=== PATIENT | female | born 1940 | race Caucasian/White ===

== ENCOUNTER → 2017-03-11 | Outpatient (CLI) | payer MEDICARE, OTHER ==
[~2017-03-11] VITALS: Ht 154.9 cm; Wt 52.2 kg
[~2017-03-11] MED LIST: ADENOSINE 44 MG in GIVE UN-DILUTED 0 ML IV ONE; ADENOSINE 90 MG/30 ML INJ IV ONE; ASPI-231 PO; ATEN50TA PO; CALC-242 OR; DYA375C PO; EZET10TA38 PO; METF-370 PO; OLME40TA27 PO
[2017-03-11 12:28] LABS: Urine Bilirubin Negative (Negative); Urine Blood Negative /uL (Negative); Urine Color Yellow (Yellow); Urine Glucose Normal (Normal); Urine Ketone Negative (Negative); Urine Nitrite POSITIVE (Negative); Urine Urobilinogen Normal (Negative); Urine pH 6.5 (5.0-8.0)
[2017-03-11 12:31] LABS: Basophils # (auto) 0.1 uL; Basophils % (auto) 0.6 % (0.0-2.0); CONDITION Y; Eosinophils # (auto) 0.2 uL; Hematocrit 32.8 % (36.0-46.0); Lymphocytes # (auto) 2.3 uL; Mean Corpuscular Hemoglobin 31.2 pg (28.0-32.0); Mean Corpuscular Hgb Conc. 33.5 g/dL (32.0-36.0); Mean Platelet Volume 9.6 fL (7.4-10.4); Monocytes # (auto) 0.5 uL; Monocytes % (auto) 5.4 % (0.0-12.0); Neutrophils # (auto) 6.8 uL; Platelet Count (auto) 215 10^3/uL (140-450); Red Cell Distribution Width 14.6 % (11.6-16.0); White Blood Cell 9.9 10^3/uL (4.4-10.8)
[2017-03-11 12:57] LABS: Albumin 3.5 g/dL (3.4-5.0); Alkaline Phosphatase 96 U/L (45-117); Anion Gap 9 (5-15); Aspartate Aminotransferase 23 U/L (15-37); BUN/Creatinine Ratio 15.9; Bilirubin, Direct < 0.1 mg/dL (0-0.2); Bilirubin, Total 0.2 mg/dL (0.2-1.0); Blood Urea Nitrogen 29 mg/dL (7-18); Calcium 8.8 mg/dL (8.5-10.1); Carbon Dioxide 22 mmol/L (21-32); Chloride 106 mmol/L (98-107); Cholesterol 125 mg/dL (< 200); GFR African American 35 mL/min; GFR Non-African American 29 mL/min; Glucose 86 mg/dL (74-106); HDL Cholesterol 29 mg/dL (40-59); LDL Cholesterol 64 mg/dL (< 100); Potassium 4.8 mmol/L (3.5-5.1); Sodium 137 mmol/L (136-145); Total Protein 6.9 g/dL (6.4-8.2); Triglycerides 243 mg/dL (< 150)
== END | disposition home or self-care (01) ==
LOC: Rad HDHVI 08:41
PROVIDERS: ATTEND Internal Medicine Cardiovascular Disease
DX: I10 Essential (primary) hypertension (principal); J44.9 Chronic obstructive pulmonary disease, unspecified; I47.9 Paroxysmal tachycardia, unspecified; D51.9 Vitamin B12 deficiency anemia, unspecified; E03.9 Hypothyroidism, unspecified; E78.00 Pure hypercholesterolemia, unspecified; N39.0 Urinary tract infection, site not specified; K74.1 Hepatic sclerosis; E11.9 Type 2 diabetes mellitus without complications; D64.9 Anemia, unspecified; E55.9 Vitamin D deficiency, unspecified; R53.81 Other malaise; Z95.5 Presence of coronary angioplasty implant and graft
CPT/HCPCS: 36415; 78452; 80048; 80061; 80076; 81003; 82306; 82607; 83036; 84402; 84403; 84443; 85025; 93005; 93306; 96374; 96375; A9500; J0153

== ENCOUNTER → 2017-09-22 | Outpatient (CLI) | payer MEDICARE, OTHER ==
[~2017-09-22] MED LIST changes: -ADENOSINE 44 MG in GIVE UN-DILUTED 0 ML IV ONE; -ADENOSINE 90 MG/30 ML INJ IV ONE; +CHOL20002 PO; +DOXA1TAB42 PO; +LOSA100T27 PO; +TICA1TAB PO
== END | disposition home or self-care (01) ==
LOC: Rad HDHVI 14:16
PROVIDERS: ATTEND Internal Medicine Cardiovascular Disease
DX: K80.20 Calculus of gallbladder without cholecystitis without obstruction (principal); I70.0 Atherosclerosis of aorta; J84.10 Pulmonary fibrosis, unspecified
CPT/HCPCS: 71250

== ENCOUNTER → 2017-09-23 | Outpatient (CLI) | payer MEDICARE, OTHER ==
[~2017-09-23] MED LIST changes: +MVI in SODIUM CHLORIDE 0.9% 1,010 ML ONE; +ONDANSETRON HCL 4 MG/2 ML VIAL ONE
[2017-09-23 16:30] VITALS: BP 155/56
== END | disposition home or self-care (01) ==
LOC: CHF HDHVI 14:33
PROVIDERS: ATTEND Internal Medicine Cardiovascular Disease
DX: E86.0 Dehydration (principal); R06.02 Shortness of breath; R09.02 Hypoxemia
CPT/HCPCS: 82962; 96365; 96366; 96375; G0463; J2405; J3411; J3475

== ENCOUNTER → 2017-09-30 | Outpatient (CLI) | payer MEDICARE, OTHER ==
[~2017-09-30] MED LIST changes: +IOHEXOL 350 MG/ML 100ML IJ ONE; -MVI in SODIUM CHLORIDE 0.9% 1,010 ML ONE; -ONDANSETRON HCL 4 MG/2 ML VIAL ONE; +SODIUM CHLORIDE 0.9% 1,000 ML IV ONE
[2017-09-30 10:45] VITALS: BP 160/62
[2017-09-30 12:20] VITALS: BP 178/59
== END | disposition home or self-care (01) ==
LOC: Rad HDHVI 10:33
PROVIDERS: ATTEND Internal Medicine Cardiovascular Disease
DX: K44.9 Diaphragmatic hernia without obstruction or gangrene (principal); I70.1 Atherosclerosis of renal artery; I70.0 Atherosclerosis of aorta; K80.20 Calculus of gallbladder without cholecystitis without obstruction; I25.10 Atherosclerotic heart disease of native coronary artery without angina pectoris; M47.899 Other spondylosis, site unspecified; J43.2 Centrilobular emphysema
CPT/HCPCS: 71260; 74177; 82565; 96360; 96374; G0463; Q9967; 96361

== ENCOUNTER → 2017-10-27 | Outpatient (CLI) | payer MEDICARE, OTHER ==
[~2017-10-27] MED LIST changes: -IOHEXOL 350 MG/ML 100ML IJ ONE; -SODIUM CHLORIDE 0.9% 1,000 ML IV ONE
[2017-10-27 10:00] VITALS: BP 143/53
[2017-10-27 10:25] VITALS: BP 150/54
[2017-10-27 12:11] LABS: Basophils # (auto) 0.1 uL; Basophils % (auto) 0.6 % (0.0-2.0); Eosinophils # (auto) 0.1 uL; Eosinophils % (auto) 1.2 % (0.0-7.0); Hematocrit 33.7 % (36.0-46.0); Hemoglobin 10.9 g/dL (12.2-16.2); Lymphocytes # (auto) 1.7 uL; Lymphocytes % (auto) 19.3 % (10.0-50.0); Mean Corpuscular Hemoglobin 30.6 pg (28.0-32.0); Mean Corpuscular Hgb Conc. 32.3 g/dL (32.0-36.0); Mean Corpuscular Volume 94.7 fL (80.0-100.0); Monocytes # (auto) 0.5 uL; Monocytes % (auto) 5.8 % (0.0-12.0); Neutrophils # (auto) 6.4 uL; Neutrophils % (auto) 73.1 % (37.0-80.0); Platelet Count (auto) 229 10^3/uL (140-450); Red Blood Cells 3.55 10^6/uL (4.0-5.20); Red Cell Distribution Width 15.6 % (11.8-14.3); White Blood Cell 8.8 10^3/uL (4.4-10.8)
[2017-10-27 12:23] LABS: INR 0.92 (0.9-1.15); Partial Thromboplastin Time 27.4 sec (22.64-33.71)
[2017-10-27 12:28] LABS: BUN/Creatinine Ratio 14.5; Calcium 8.7 mg/dL (8.5-10.1); Potassium 4.8 mmol/L (3.5-5.1)
== END | disposition home or self-care (01) ==
LOC: Rad HDHVI 09:34
PROVIDERS: ATTEND Internal Medicine Cardiovascular Disease
DX: Z01.818 Encounter for other preprocedural examination (principal); I70.0 Atherosclerosis of aorta; D64.9 Anemia, unspecified; R79.1 Abnormal coagulation profile; I10 Essential (primary) hypertension; E78.00 Pure hypercholesterolemia, unspecified; Z95.5 Presence of coronary angioplasty implant and graft
CPT/HCPCS: 36415; 71046; 80048; 85025; 85610; 85730; 93005; G0463

== ENCOUNTER 2017-10-29 09:53 | Inpatient (IN) | payer MEDICARE, OTHER ==
[~2017-10-29] VITALS: Ht 152.4 cm; Wt 53.3 kg
[~2017-10-29 09:53] MED LIST changes: -TICA1TAB PO
[2017-10-29] MEDS ORDERED: fentaNYL CITRATE 100 MCG/2 ML VL ONE (12:39)
[2017-10-29] MEDS ORDERED: MIDAZOLAM HCL 1MG/1ML-2 ML VIAL ONE (12:39)
[2017-10-29] MEDS ORDERED: ANGIOMAX 250 MG VIAL IV ONE (12:41)
[2017-10-29] MEDS ORDERED: SODIUM CHL 0.9% 50 ML ONE (12:42)
[2017-10-29] MEDS ORDERED: IODIXANOL 320MG/ML 100ML BTL IV ONE ×2 (12:46→12:48)
[2017-10-29] MEDS ORDERED: LIDOCAINE 2%HCL (LOCAL ANESTH.) INJ 20ML MDV ONE (12:48)
[2017-10-29] MEDS ORDERED: cloNIDine HCL 0.1 MG TAB ONE (13:08)
[2017-10-29] MEDS ORDERED: CLOPIDOGREL 300 MG TAB ONE (13:41)
[2017-10-29] MEDS ORDERED: SODIUM CHLORIDE 0.9% 1,000 ML IV SCH (13:54)
[2017-10-29] MEDS ORDERED: ACETAMINOPHEN 500 MG TAB PO PRN (14:00)
[2017-10-29] MEDS ORDERED: ONDANSETRON HCL 4 MG/2 ML VIAL IV PRN (14:00)
[2017-10-29] MEDS ORDERED: CLOPIDOGREL BISULFATE 75 MG TAB PO ONE (14:30)
[2017-10-29] MEDS ORDERED: DOXAZOSIN MESYL 2 MG TAB PO ONE (14:30)
[2017-10-29] MEDS ORDERED: LOSARTAN POTASSIUM 50 MG TAB PO ONE (14:30)
[2017-10-29] MEDS ORDERED: ASPirin-EC 81 mg tab PO ONE (14:30)
[2017-10-29] MEDS ORDERED: TRIAMTERENE/HCTZ 37.5/25 MG CAP PO ONE (14:30)
[2017-10-29] MEDS ORDERED: DEXTROSE (50%) 50ML SYRG IV PRN (15:00)
[2017-10-29 17:00] VITALS: BP 105/40
[2017-10-29] MEDS: InsuLIN REG 1unit/0.01ml Soln (100units/ml) SC SCH ×2 (17:00→20:49)
[2017-10-29 17:34] VITALS: BP 105/40
[2017-10-29] MEDS: ACCU-CHEK COMFORT CURVE STRIP VI SCH ×2 (18:51→20:50)
[2017-10-29] MEDS: DOXAZOSIN MESYL 2 MG TAB PO SCH (21:39)
[2017-10-29 22:00] VITALS: BP 118/50
[2017-10-29] MEDS ORDERED: CHOLECALCIFEROL (VITD3) 1,000 UNIT TAB PO SCH (22:00)
[2017-10-30 05:00] VITALS: BP 109/43
[2017-10-30 06:16] VITALS: BP 109/43
[2017-10-30 06:53] LABS: BUN/Creatinine Ratio 19.9; Calcium 8.4 mg/dL (8.5-10.1); Potassium 4.8 mmol/L (3.5-5.1)
[2017-10-30] MEDS: InsuLIN REG 1unit/0.01ml Soln (100units/ml) SC SCH ×2 (07:00→12:51)
[2017-10-30] MEDS: ACCU-CHEK COMFORT CURVE STRIP VI SCH ×2 (07:26→12:51)
[2017-10-30 08:51] LABS: Basophils # (auto) 0.1 uL; Basophils % (auto) 0.7 % (0.0-2.0); Eosinophils # (auto) 0.2 uL; Eosinophils % (auto) 2.4 % (0.0-7.0); Hemoglobin 9.6 g/dL (12.2-16.2); Lymphocytes # (auto) 1.9 uL; Lymphocytes % (auto) 23.2 % (10.0-50.0); Mean Corpuscular Hemoglobin 31.2 pg (28.0-32.0); Mean Corpuscular Hgb Conc. 33.1 g/dL (32.0-36.0); Mean Corpuscular Volume 94.2 fL (80.0-100.0); Monocytes # (auto) 0.5 uL; Monocytes % (auto) 5.6 % (0.0-12.0); Neutrophils # (auto) 5.5 uL; Neutrophils % (auto) 68.1 % (37.0-80.0); Nucleated Red Blood Cells % 0.1 %; Platelet Count (auto) 194 10^3/uL (140-450); Red Blood Cells 3.08 10^6/uL (4.0-5.20); Red Cell Distribution Width 15.5 % (11.8-14.3)
[2017-10-30 09:00] VITALS: BP 115/44
[2017-10-30] MEDS ORDERED: TRIAMTERENE/HCTZ 37.5/25 MG CAP PO SCH (10:00)
[2017-10-30] MEDS ORDERED: LOSARTAN POTASSIUM 50 MG TAB PO SCH (10:00)
[2017-10-30] MEDS ORDERED: OLMESARTAN MEDOXOMIL 40 MG PO SCH (10:00)
[2017-10-30] MEDS ORDERED: CLOPIDOGREL BISULFATE 75 MG TAB PO SCH (10:00)
[2017-10-30] MEDS ORDERED: ASPirin-EC 81 mg tab PO SCH (10:00)
[2017-10-30] MEDS: DOXAZOSIN MESYL 2 MG TAB PO SCH (10:35)
[2017-10-30 13:00] VITALS: BP 124/55
[2017-11-17] MEDS ORDERED: TICA1TAB PO (11:19)
== END 2017-10-30 13:25 | disposition home or self-care (01) | DRG 674 ==
LOC: CATH 09:53 → CENTRAL 09:54
PROVIDERS: ADMIT Internal Medicine Cardiovascular Disease; ATTEND Internal Medicine Cardiovascular Disease
PROC: 047934Z Dilation of Right Renal Artery with Drug-eluting Intraluminal Device, Percutaneous Approach (ICD-10-PCS; principal; 2017-10-29)
PROC: B4101ZZ Fluoroscopy of Abdominal Aorta using Low Osmolar Contrast (ICD-10-PCS; 2017-10-29)
PROC: B4181ZZ Fluoroscopy of Bilateral Renal Arteries using Low Osmolar Contrast (ICD-10-PCS; 2017-10-29)
DX: I70.1 Atherosclerosis of renal artery (principal); N17.9 Acute kidney failure, unspecified; I49.5 Sick sinus syndrome; E11.9 Type 2 diabetes mellitus without complications; I10 Essential (primary) hypertension; J44.9 Chronic obstructive pulmonary disease, unspecified; E78.5 Hyperlipidemia, unspecified; I25.10 Atherosclerotic heart disease of native coronary artery without angina pectoris; Z87.891 Personal history of nicotine dependence; Z82.49 Family history of ischemic heart disease and other diseases of the circulatory system; Z79.84 Long term (current) use of oral hypoglycemic drugs; Z98.61 Coronary angioplasty status
CPT/HCPCS: 36252; 36415; 37236; 71046; 75625; 80048; 82962; 85025; 85610; 85730; 93005; 99152; 99153; G0463; J2250; Q9967

== ENCOUNTER → 2017-11-09 | Outpatient (CLI) | payer MEDICARE, OTHER ==
[~2017-11-09] MED LIST changes: +TICA1TAB PO; +methylPREDNISolone SOD SUCC 40 MG/ML VL IM ONE; +methylPREDNISolone SOD SUCC 40 MG/ML VL ONE
[2017-11-09 11:20] VITALS: BP 144/55
== END | disposition home or self-care (01) ==
LOC: CHF HDHVI 10:58
PROVIDERS: ATTEND Internal Medicine Cardiovascular Disease
DX: L29.9 Pruritus, unspecified (principal); T50.905A Adverse effect of unspecified drugs, medicaments and biological substances, initial encounter; Y92.009 Unspecified place in unspecified non-institutional (private) residence as the place of occurrence of the external cause
CPT/HCPCS: 96372; G0463; J2920

== ENCOUNTER → 2017-11-17 | Outpatient (CLI) | payer MEDICARE, OTHER ==
[~2017-11-17] MED LIST changes: -methylPREDNISolone SOD SUCC 40 MG/ML VL IM ONE; -methylPREDNISolone SOD SUCC 40 MG/ML VL ONE
[2017-11-17 10:00] VITALS: BP 152/62
[2017-11-17 10:25] VITALS: BP 159/58
[2017-11-17 12:14] LABS: Basophils # (auto) 0.1 uL; Basophils % (auto) 0.9 % (0.0-2.0); Eosinophils # (auto) 0.3 uL; Hematocrit 32.7 % (36.0-46.0); Hemoglobin 10.7 g/dL (12.2-16.2); Lymphocytes # (auto) 1.9 uL; Lymphocytes % (auto) 20.3 % (10.0-50.0); Mean Corpuscular Hemoglobin 30.5 pg (28.0-32.0); Mean Corpuscular Hgb Conc. 32.7 g/dL (32.0-36.0); Mean Corpuscular Volume 93.3 fL (80.0-100.0); Monocytes # (auto) 0.5 uL; Monocytes % (auto) 5.8 % (0.0-12.0); Neutrophils # (auto) 6.6 uL; Platelet Count (auto) 290 10^3/uL (140-450); Red Blood Cells 3.51 10^6/uL (4.0-5.20); Red Cell Distribution Width 14.9 % (11.8-14.3); White Blood Cell 9.4 10^3/uL (4.4-10.8)
[2017-11-17 12:26] LABS: INR 0.93 (0.9-1.15); Partial Thromboplastin Time 26.6 sec (22.64-33.71); Prothrombin Time 10.1 sec (9.37-12.3)
[2017-11-17 12:36] LABS: BUN/Creatinine Ratio 13.2; Calcium 9.1 mg/dL (8.5-10.1); Potassium 4.8 mmol/L (3.5-5.1)
== END | disposition home or self-care (01) ==
LOC: Rad HDHVI 09:45
PROVIDERS: ATTEND Internal Medicine Cardiovascular Disease
DX: Z01.818 Encounter for other preprocedural examination (principal); I70.0 Atherosclerosis of aorta; E78.00 Pure hypercholesterolemia, unspecified; I10 Essential (primary) hypertension; D64.9 Anemia, unspecified; R79.1 Abnormal coagulation profile; I25.10 Atherosclerotic heart disease of native coronary artery without angina pectoris; I73.9 Peripheral vascular disease, unspecified; F17.200 Nicotine dependence, unspecified, uncomplicated; Z95.5 Presence of coronary angioplasty implant and graft
CPT/HCPCS: 36415; 71046; 80048; 85025; 85610; 85730; 93005; G0463

== ENCOUNTER 2017-11-19 09:54 | Inpatient (IN) | payer MEDICARE, OTHER ==
[~2017-11-19] VITALS: Ht 152.4 cm; Wt 53.7 kg
[2017-11-19] MEDS ORDERED: IODIXANOL 320MG/ML 100ML BTL IV ONE (10:32)
[2017-11-19] MEDS ORDERED: LIDOCAINE HCL 2 %PF INJ 10ML AMP IJ ONE (10:35)
[2017-11-19] MEDS ORDERED: ANGIOMAX 250 MG VIAL IV ONE (10:55)
[2017-11-19] MEDS ORDERED: fentaNYL CITRATE 100 MCG/2 ML VL ONE (10:55)
[2017-11-19] MEDS ORDERED: SODIUM CHL 0.9% 50 ML ONE (10:56)
[2017-11-19] MEDS ORDERED: MIDAZOLAM HCL 1MG/1ML-2 ML VIAL ONE (10:56)
[2017-11-19] MEDS ORDERED: cloNIDine HCL 0.1 MG TAB ONE (11:15)
[2017-11-19] MEDS ORDERED: cloNIDine HCL 0.1 MG TAB PO ONE (11:30)
[2017-11-19] MEDS ORDERED: MORPHINE SULFATE 4 MG/ML SYR/VIAL IV PRN (13:00)
[2017-11-19] MEDS ORDERED: ACETAMINOPHEN 500 MG TAB PO PRN (13:00)
[2017-11-19] MEDS ORDERED: HYDROcodone-ACET 5/325MG TAB PO PRN (13:00)
[2017-11-19] MEDS ORDERED: NITROGLYCERIN 0.4 MG SL TAB SL PRN (13:00)
[2017-11-19] MEDS ORDERED: ONDANSETRON HCL 4 MG/2 ML VIAL IV PRN (13:00)
[2017-11-19] MEDS: SODIUM CHLOR 0.9% PF (SALINE LOCK) 10ML VIAL IV SCH ×2 (13:47→22:00)
[2017-11-19] MEDS ORDERED: cloNIDine HCL 0.1 MG TAB PO PRN (14:45)
[2017-11-19 17:05] VITALS: BP 99/44
[2017-11-19 21:44] VITALS: BP 155/58
[2017-11-20 04:56] VITALS: BP 109/58
[2017-11-20] MEDS: SODIUM CHLOR 0.9% PF (SALINE LOCK) 10ML VIAL IV SCH ×2 (06:00→09:08)
[2017-11-20 08:46] VITALS: BP 126/65
[2017-11-20] MEDS ORDERED: ASPirin-EC 81 mg tab PO SCH (10:00)
[2017-11-20] MEDS: TICAGRELOR 60 MG TAB PO SCH ×2 (10:00→10:12)
[2017-11-20 13:01] VITALS: BP 114/48
[2017-11-20 14:28] VITALS: BP 145/73
== END 2017-11-20 14:47 | disposition home or self-care (01) | DRG 673 ==
LOC: CATH 09:54 → EAST 09:55
PROVIDERS: ADMIT Internal Medicine Cardiovascular Disease; ATTEND Internal Medicine Cardiovascular Disease
PROC: 047A34Z Dilation of Left Renal Artery with Drug-eluting Intraluminal Device, Percutaneous Approach (ICD-10-PCS; principal; 2017-11-19)
PROC: B4181ZZ Fluoroscopy of Bilateral Renal Arteries using Low Osmolar Contrast (ICD-10-PCS; 2017-11-19)
DX: I70.1 Atherosclerosis of renal artery (principal); J96.90 Respiratory failure, unspecified, unspecified whether with hypoxia or hypercapnia; J44.9 Chronic obstructive pulmonary disease, unspecified; I10 Essential (primary) hypertension; Z96.89 Presence of other specified functional implants; I25.10 Atherosclerotic heart disease of native coronary artery without angina pectoris; Z87.891 Personal history of nicotine dependence
CPT/HCPCS: 36252; 36415; 37236; 71046; 80048; 82962; 85025; 85610; 85730; 87081; 93005; 99152; G0463; J2250; Q9967

== ENCOUNTER → 2018-04-30 | Outpatient (CLI) | payer MEDICARE, BC ==
[~2018-04-30] VITALS: Ht 152.4 cm; Wt 53.1 kg
[~2018-04-30] MED LIST changes: +ADENOSINE 45 MG in GIVE UN-DILUTED 0 ML IV ONE; +ADENOSINE 90 MG/30 ML INJ IV ONE
[2018-04-30 12:17] LABS: Basophils # (auto) 0 uL; Basophils % (auto) 0.5 % (0.0-2.0); Eosinophils # (auto) 0.1 uL; Lymphocytes # (auto) 1.8 uL; Monocytes # (auto) 0.5 uL; Platelet Count (auto) 232 10^3/uL (140-450)
[2018-04-30 12:18] LABS: Hematocrit 22.7 % (36.0-46.0); Hemoglobin 7.4 g/dL (12.2-16.2); Lymphocytes % (auto) 20.6 % (10.0-50.0); Mean Corpuscular Hemoglobin 31.2 pg (28.0-32.0); Mean Corpuscular Hgb Conc. 32.6 g/dL (32.0-36.0); Mean Corpuscular Volume 95.5 fL (80.0-100.0); Monocytes % (auto) 5.8 % (0.0-12.0); Neutrophils # (auto) 6.4 uL; Neutrophils % (auto) 72.1 % (37.0-80.0); Red Blood Cells 2.37 10^6/uL (4.0-5.20); Red Cell Distribution Width 16.9 % (11.8-14.3); White Blood Cell 8.8 10^3/uL (4.4-10.8)
[2018-04-30 13:50] LABS: Free T4 (Free Thyroxine) 0.93 ng/dL (0.89-1.76)
[2018-04-30 13:55] LABS: Albumin 3.5 g/dL (3.4-5.0); BUN/Creatinine Ratio 17.8; Bilirubin, Total 0.4 mg/dL (0.2-1.0); Calcium 8.4 mg/dL (8.5-10.1); Potassium 4.9 mmol/L (3.5-5.1); Total Protein 7.1 g/dL (6.4-8.2)
[2018-04-30 15:56] LABS: Urine Blood Negative /uL (Negative); Urine Specific Gravity 1.014 (1.001-1.035)
== END | disposition home or self-care (01) ==
LOC: Rad HDHVI 08:56
PROVIDERS: ATTEND Internal Medicine Cardiovascular Disease
DX: Z00.01 Encounter for general adult medical examination with abnormal findings (principal); I08.1 Rheumatic disorders of both mitral and tricuspid valves; I10 Essential (primary) hypertension; I20.0 Unstable angina; I70.1 Atherosclerosis of renal artery; E78.00 Pure hypercholesterolemia, unspecified; E03.9 Hypothyroidism, unspecified; E55.9 Vitamin D deficiency, unspecified; E11.9 Type 2 diabetes mellitus without complications; D51.9 Vitamin B12 deficiency anemia, unspecified; N39.0 Urinary tract infection, site not specified
CPT/HCPCS: 36415; 78452; 80053; 80061; 81003; 82306; 82607; 83036; 84439; 84443; 85025; 87086; 87088; 87186; 93005; 93306; 96374; 96375; A9500; J0153

== ENCOUNTER → 2018-05-04 | Outpatient (CLI) | payer MEDICARE, BC ==
[~2018-05-04] MED LIST changes: -ADENOSINE 45 MG in GIVE UN-DILUTED 0 ML IV ONE; -ADENOSINE 90 MG/30 ML INJ IV ONE; +IOHEXOL 350 MG/ML 100ML IJ ONE
[2018-05-04 12:37] LABS: Basophils # (auto) 0 uL; Basophils % (auto) 0.5 % (0.0-2.0); Eosinophils # (auto) 0.1 uL; Hemoglobin 7.3 g/dL (12.2-16.2); Lymphocytes # (auto) 1.6 uL; Monocytes # (auto) 0.5 uL
[2018-05-04 12:39] LABS: Eosinophils % (auto) 0.6 % (0.0-7.0); Lymphocytes % (auto) 18.5 % (10.0-50.0); Mean Corpuscular Hemoglobin 30.5 pg (28.0-32.0); Mean Corpuscular Hgb Conc. 31.7 g/dL (32.0-36.0); Mean Corpuscular Volume 96.2 fL (80.0-100.0); Monocytes % (auto) 5.7 % (0.0-12.0); Neutrophils # (auto) 6.4 uL; Neutrophils % (auto) 74.7 % (37.0-80.0); Platelet Count (auto) 231 10^3/uL (140-450); Red Blood Cells 2.39 10^6/uL (4.0-5.20); Red Cell Distribution Width 16.8 % (11.8-14.3); White Blood Cell 8.6 10^3/uL (4.4-10.8)
[2018-05-04 14:50] VITALS: BP 196/65
== END | disposition home or self-care (01) ==
LOC: Rad HDHVI 10:48
PROVIDERS: ATTEND Internal Medicine Cardiovascular Disease
DX: D64.9 Anemia, unspecified (principal); R94.4 Abnormal results of kidney function studies; I10 Essential (primary) hypertension; J44.9 Chronic obstructive pulmonary disease, unspecified
CPT/HCPCS: 36415; 82565; 82962; 84520; 85025; Q9967

== ENCOUNTER → 2018-05-07 | Day surgery (SDC) | payer MEDICARE, BC ==
[~2018-05-07] MED LIST changes: -IOHEXOL 350 MG/ML 100ML IJ ONE
[2018-05-07 10:25] VITALS: BP 156/66
== END | disposition home or self-care (01) ==
LOC: CATH 06:44
PROVIDERS: ATTEND Internal Medicine Cardiovascular Disease
DX: D64.9 Anemia, unspecified (principal); J44.9 Chronic obstructive pulmonary disease, unspecified; F17.210 Nicotine dependence, cigarettes, uncomplicated; Z98.51 Tubal ligation status; Z95.5 Presence of coronary angioplasty implant and graft; Z98.890 Other specified postprocedural states; Z83.3 Family history of diabetes mellitus; Z82.49 Family history of ischemic heart disease and other diseases of the circulatory system; Z88.8 Allergy status to other drugs, medicaments and biological substances; Z80.8 Family history of malignant neoplasm of other organs or systems; Z84.89 Family history of other specified conditions
CPT/HCPCS: 36430; 86850; 86900; 86901; 86920; P9016

== ENCOUNTER → 2018-05-11 | Outpatient (CLI) | payer MEDICARE, BC ==
[2018-05-11 16:03] LABS: BUN/Creatinine Ratio 18.3; Calcium 8.6 mg/dL (8.5-10.1); Potassium 5.1 mmol/L (3.5-5.1)
[2018-05-11 16:30] LABS: Basophils # (auto) 0 uL; Basophils % (auto) 0.4 % (0.0-2.0); Eosinophils # (auto) 0.1 uL; Eosinophils % (auto) 0.7 % (0.0-7.0); Hematocrit 32.8 % (36.0-46.0); Hemoglobin 10.8 g/dL (12.2-16.2); Lymphocytes # (auto) 1.8 uL; Lymphocytes % (auto) 17.3 % (10.0-50.0); Mean Corpuscular Hemoglobin 30.6 pg (28.0-32.0); Mean Corpuscular Hgb Conc. 32.9 g/dL (32.0-36.0); Mean Corpuscular Volume 92.8 fL (80.0-100.0); Monocytes # (auto) 0.7 uL; Monocytes % (auto) 6.8 % (0.0-12.0); Neutrophils # (auto) 7.6 uL; Neutrophils % (auto) 74.8 % (37.0-80.0); Platelet Count (auto) 249 10^3/uL (140-450); Red Blood Cells 3.54 10^6/uL (4.0-5.20); Red Cell Distribution Width 15.5 % (11.8-14.3); White Blood Cell 10.2 10^3/uL (4.4-10.8)
== END | disposition home or self-care (01) ==
LOC: LAB 15:04
PROVIDERS: ATTEND Internal Medicine Cardiovascular Disease
DX: D64.9 Anemia, unspecified (principal); I10 Essential (primary) hypertension; J44.9 Chronic obstructive pulmonary disease, unspecified; E11.9 Type 2 diabetes mellitus without complications; F17.200 Nicotine dependence, unspecified, uncomplicated; Z79.82 Long term (current) use of aspirin
CPT/HCPCS: 36415; 80048; 85025

== ENCOUNTER → 2018-09-09 | Outpatient (CLI) | payer MEDICARE, BC ==
[~2018-09-09] MED LIST changes: +LOSA-49 PO; -LOSA100T27 PO; +OLME40TA19 PO; -OLME40TA27 PO
[2018-09-09 12:31] LABS: Urine Blood Negative /uL (Negative); Urine Specific Gravity 1.015 (1.001-1.035)
[2018-09-09 12:39] LABS: Basophils # (auto) 0 uL; Basophils % (auto) 0.4 % (0.0-2.0); Eosinophils # (auto) 0.1 uL; Eosinophils % (auto) 1.3 % (0.0-7.0); Hemoglobin 10.4 g/dL (12.2-16.2); Lymphocytes # (auto) 1.6 uL; Lymphocytes % (auto) 25.3 % (10.0-50.0); Mean Corpuscular Hgb Conc. 32.5 g/dL (32.0-36.0); Mean Corpuscular Volume 95.4 fL (80.0-100.0); Monocytes # (auto) 0.4 uL; Monocytes % (auto) 6.2 % (0.0-12.0); Neutrophils # (auto) 4.4 uL; Neutrophils % (auto) 66.8 % (37.0-80.0); Platelet Count (auto) 192 10^3/uL (140-450); Red Blood Cells 3.35 10^6/uL (4.0-5.20); Red Cell Distribution Width 15.3 % (11.8-14.3); White Blood Cell 6.5 10^3/uL (4.4-10.8)
[2018-09-09 13:27] LABS: Potassium 4.8 mmol/L (3.5-5.1)
[2018-09-09 13:29] LABS: Free T4 (Free Thyroxine) 0.96 ng/dL (0.89-1.76)
[2018-09-09 13:42] LABS: Albumin 3.6 g/dL (3.4-5.0); BUN/Creatinine Ratio 13.5; Bilirubin, Total 0.3 mg/dL (0.2-1.0); Calcium 8.7 mg/dL (8.5-10.1); Total Protein 7.2 g/dL (6.4-8.2)
== END | disposition home or self-care (01) ==
LOC: LAB 09:45
PROVIDERS: ATTEND Internal Medicine Cardiovascular Disease
DX: E03.9 Hypothyroidism, unspecified (principal); E55.9 Vitamin D deficiency, unspecified; E11.9 Type 2 diabetes mellitus without complications; D51.9 Vitamin B12 deficiency anemia, unspecified; N39.0 Urinary tract infection, site not specified
CPT/HCPCS: 36415; 80053; 80061; 81003; 82306; 82607; 83036; 84439; 84443; 85025

== ENCOUNTER → 2018-12-06 | Outpatient (CLI) | payer MEDICARE, BC | END | disposition home or self-care (01) | LOC: LAB 13:19 | PROVIDERS: ATTEND Internal Medicine Cardiovascular Disease | DX: E11.40 Type 2 diabetes mellitus with diabetic neuropathy, unspecified (principal) | CPT/HCPCS: 36415; 83036 ==

== ENCOUNTER → 2018-12-24 | Outpatient (CLI) | payer MEDICARE, BC ==
[~2018-12-24] VITALS: Ht 1 cm; Wt 0.5 kg
[~2018-12-24] MED LIST changes: +IOHEXOL 350 MG/ML 100ML IJ ONE; +LORazepam 0.5 MG TAB ONE; +LORazepam 0.5 MG TAB PO ONE; +SODIUM CHLORIDE 0.9% 250 ML IV ONE
[2018-12-24 09:18] VITALS: BP 168/55
--- NOTE | 2018-12-24 09:18 | NUR ---
IV insertion IV access obtained, via clean sterile technique by inserting 20 gauge catheter at LAC after 1 attempt(s). IV secured properly. No trauma to site. Patient tolerated procedure well.
--- NOTE | 2018-12-24 12:50 | NUR ---
IV removal IV DC'd with sterile technique, catheter fully intact. Pressure dressing applied to site. Patient tolerated procedure well.
[2018-12-24 12:55] VITALS: BP 172/53
--- NOTE | 2018-12-24 12:55 | NUR ---
[facility] Discharge Instructions See e-MAR for any mediations given with this visit. Patient education given on disease process. Patient verbalized understanding. Previous labs reviewed. Patient discharged in stable condition with after care instructions and follow up appointment. NOTE [id number] ADMIN BY DANIEL HOU ATIVAN PO ADMIN BY POONAM HOU.
== END | disposition home or self-care (01) ==
LOC: Rad HDHVI 09:02
PROVIDERS: ATTEND Internal Medicine Cardiovascular Disease
DX: C34.90 Malignant neoplasm of unspecified part of unspecified bronchus or lung (principal); R94.4 Abnormal results of kidney function studies; J43.9 Emphysema, unspecified; I25.10 Atherosclerotic heart disease of native coronary artery without angina pectoris; K80.20 Calculus of gallbladder without cholecystitis without obstruction; E11.40 Type 2 diabetes mellitus with diabetic neuropathy, unspecified; F41.9 Anxiety disorder, unspecified
CPT/HCPCS: 36415; 71260; 82565; G0463; J7050; Q9967; 96360

== ENCOUNTER → 2019-01-03 | Outpatient (CLI) | payer MEDICARE, BC ==
[~2019-01-03] MED LIST changes: +CYANOCOBALAMIN (B-12) 1000 MCG/1 ML VIAL IM ONE; +CYANOCOBALAMIN (B-12) 1000 MCG/1 ML VIAL ONE; -IOHEXOL 350 MG/ML 100ML IJ ONE; -LORazepam 0.5 MG TAB ONE; -LORazepam 0.5 MG TAB PO ONE; -SODIUM CHLORIDE 0.9% 250 ML IV ONE
[2019-01-03 11:40] VITALS: BP 175/52
[2019-01-03 13:00] VITALS: BP 167/54
[2019-01-03 16:05] LABS: Potassium 4.7 mmol/L (3.5-5.1)
[2019-01-03 16:08] LABS: Calcium 8.7 mg/dL (8.5-10.1); Magnesium 2.2 mg/dL (1.6-2.6)
[2019-01-03 16:11] LABS: BUN/Creatinine Ratio 25.5
[2019-01-03 16:50] LABS: Basophils # (auto) 0 uL; Basophils % (auto) 0.1 % (0.0-2.0); Eosinophils # (auto) 0 uL; Eosinophils % (auto) 0.2 % (0.0-7.0); Hematocrit 33.1 % (36.0-46.0); Hemoglobin 10.8 g/dL (12.2-16.2); Lymphocytes # (auto) 0.7 uL; Lymphocytes % (auto) 4.1 % (10.0-50.0); Mean Corpuscular Hemoglobin 30.8 pg (28.0-32.0); Mean Corpuscular Hgb Conc. 32.6 g/dL (32.0-36.0); Mean Corpuscular Volume 94.6 fL (80.0-100.0); Monocytes # (auto) 0.8 uL; Monocytes % (auto) 5.1 % (0.0-12.0); Neutrophils # (auto) 14.6 uL; Neutrophils % (auto) 90.5 % (37.0-80.0); Platelet Count (auto) 258 10^3/uL (140-450); Red Cell Distribution Width 14.8 % (11.8-14.3); White Blood Cell 16.1 10^3/uL (4.4-10.8)
--- NOTE | 2019-01-03 17:09 | NUR ---
FOLLOW UP FOLLOWED UP WITH PATIENT REGARDING LOW BLOOD SUGAR. LEFT MESSAGE AND ADVISED PATIENT TO CHECK BLLOD SUGAR AND WATCH FOR S/S OF LOW BLOOD SUGAR , ADVISED TO HAVE ORANGE JUICE IN THE HOUSE OTHER MEANS TO RAISE BLOOD SUGAR IF NEEDED, ADVISED PT TO DANIELA OR GO TO EMERGENCY ROOM IF SHE FEELS LIKE BLOOD SUGAR IS LOW.
== END | disposition home or self-care (01) ==
LOC: CHF HDHVI 11:34
PROVIDERS: ATTEND Internal Medicine Cardiovascular Disease
DX: I11.0 Hypertensive heart disease with heart failure (principal); I50.9 Heart failure, unspecified; D64.9 Anemia, unspecified; I25.10 Atherosclerotic heart disease of native coronary artery without angina pectoris; F41.9 Anxiety disorder, unspecified; J43.9 Emphysema, unspecified; E11.40 Type 2 diabetes mellitus with diabetic neuropathy, unspecified; Z79.899 Other long term (current) drug therapy; Z85.118 Personal history of other malignant neoplasm of bronchus and lung
CPT/HCPCS: 36415; 80048; 82962; 83735; 85025; 96372; G0463; J3420

== ENCOUNTER → 2019-06-29 | Outpatient (CLI) | payer MEDICARE, BC ==
[~2019-06-29] MED LIST changes: -CYANOCOBALAMIN (B-12) 1000 MCG/1 ML VIAL IM ONE; -CYANOCOBALAMIN (B-12) 1000 MCG/1 ML VIAL ONE; +EZET10TA24 PO; -EZET10TA38 PO; +LOSA-39 PO; -LOSA-49 PO
== END | disposition home or self-care (01) ==
LOC: Rad HDHVI 09:38
PROVIDERS: ATTEND Internal Medicine Cardiovascular Disease
DX: E11.21 Type 2 diabetes mellitus with diabetic nephropathy (principal); R06.02 Shortness of breath; J44.9 Chronic obstructive pulmonary disease, unspecified; I11.9 Hypertensive heart disease without heart failure; I25.10 Atherosclerotic heart disease of native coronary artery without angina pectoris
CPT/HCPCS: 93880

== ENCOUNTER → 2019-07-05 | Outpatient (CLI) | payer MEDICARE, BC ==
[~2019-07-05] VITALS: Ht 149.9 cm; Wt 56.7 kg
[~2019-07-05] MED LIST changes: +ADENOSINE 48 MG in GIVE UN-DILUTED 0 ML IV ONE; +ADENOSINE 90 MG/30 ML INJ IV ONE
== END | disposition home or self-care (01) ==
LOC: Rad HDHVI 13:52
PROVIDERS: ATTEND Internal Medicine Cardiovascular Disease
DX: I34.0 Nonrheumatic mitral (valve) insufficiency (principal); J44.9 Chronic obstructive pulmonary disease, unspecified; R42 Dizziness and giddiness; I10 Essential (primary) hypertension; E78.00 Pure hypercholesterolemia, unspecified; E11.9 Type 2 diabetes mellitus without complications
CPT/HCPCS: 78452; 93005; 93306; 96374; 96375; A9500; J0153

== ENCOUNTER → 2019-08-29 | Outpatient (CLI) | payer MEDICARE, BC ==
[~2019-08-29] MED LIST changes: -ADENOSINE 48 MG in GIVE UN-DILUTED 0 ML IV ONE; -ADENOSINE 90 MG/30 ML INJ IV ONE; +DONNATAL 5ml ORAL Elix (BELLADONNA ALK-PHENOBARB) ONE; +DONNATAL 5ml ORAL Elix (BELLADONNA ALK-PHENOBARB) PO ONE; -OLME40TA19 PO; +OLME40TA26 PO; +ONDANSETRON HCL 4 MG/2 ML VIAL IV ONE; +ONDANSETRON HCL 4 MG/2 ML VIAL ONE; +SODIUM CHLORIDE 0.9% 1,000 ML IV ONE
--- NOTE | 2019-08-29 11:40 | NUR ---
[facility] PT ARRIVED AT THE [facility] FOR [facility]. CAME IN FOR ABDOMINAL PAIN AND NAUSEA WITH DIHARREA. VSS PT A/0 X 4 0 DISTRESS
--- NOTE | 2019-08-29 12:00 | NUR ---
IV insertion IV access obtained, via clean sterile technique by inserting 22 gauge catheter at after attempt(s). IV secured properly. No trauma to site. Patient tolerated procedure well.
[2019-08-29 12:19] LABS: Basophils # (auto) 0 uL; Basophils % (auto) 0.2 % (0.0-2.0); Eosinophils # (auto) 0 uL; Eosinophils % (auto) 0.1 % (0.0-7.0); Hematocrit 30.9 % (36.0-46.0); Hemoglobin 10.2 g/dL (12.2-16.2); Lymphocytes # (auto) 1.3 uL; Lymphocytes % (auto) 12.4 % (10.0-50.0); Mean Corpuscular Hemoglobin 29.6 pg (28.0-32.0); Mean Corpuscular Hgb Conc. 32.8 g/dL (32.0-36.0); Mean Corpuscular Volume 90.3 fL (80.0-100.0); Monocytes # (auto) 0.4 uL; Monocytes % (auto) 4.2 % (0.0-12.0); Neutrophils # (auto) 8.6 uL; Neutrophils % (auto) 83.1 % (37.0-80.0); Platelet Count (auto) 398 10^3/uL (140-450); Red Blood Cells 3.43 10^6/uL (4.0-5.20); Red Cell Distribution Width 16.8 % (11.8-14.3); White Blood Cell 10.4 10^3/uL (4.4-10.8)
[2019-08-29 12:40] LABS: Albumin 2.5 g/dL (3.4-5.0); BUN/Creatinine Ratio 17.1; Calcium 9.1 mg/dL (8.5-10.1); Potassium 4.9 mmol/L (3.5-5.1)
[2019-08-29 12:43] LABS: Bilirubin, Total 0.4 mg/dL (0.2-1.0); Total Protein 7.6 g/dL (6.4-8.2)
[2019-08-29 14:00] VITALS: BP 153/57
--- NOTE | 2019-08-29 14:55 | NUR ---
IV removal IV DC'd with sterile technique, catheter fully intact. Pressure dressing applied to site. Patient tolerated procedure well. Discharged with aftercare instructions per MD. NOTE:
[2019-08-29 14:56] VITALS: BP 118/56
--- NOTE | 2019-08-29 14:56 | NUR ---
Discharge Instructions See e-MAR for any mediations given with this visit. Patient education given on disease process. Patient verbalized understanding. Previous labs reviewed. Patient discharged in stable condition with after care instructions and follow up appointment. MEDICATIONS [id number] [place] [place]
== END | disposition home or self-care (01) ==
LOC: CHF HDHVI 11:39
PROVIDERS: ATTEND Internal Medicine Cardiovascular Disease
DX: D64.9 Anemia, unspecified (principal); R11.2 Nausea with vomiting, unspecified; R19.7 Diarrhea, unspecified; I25.10 Atherosclerotic heart disease of native coronary artery without angina pectoris; J44.9 Chronic obstructive pulmonary disease, unspecified; E78.5 Hyperlipidemia, unspecified; I10 Essential (primary) hypertension; J90 Pleural effusion, not elsewhere classified; Z99.81 Dependence on supplemental oxygen; Z86.73 Personal history of transient ischemic attack (TIA), and cerebral infarction without residual deficits; Z87.891 Personal history of nicotine dependence
CPT/HCPCS: 36415; 74176; 80053; 85025; 96361; 96374; G0463; J2405; J7030; 96360; 96375

== ENCOUNTER → 2020-10-05 | Outpatient (CLI) | payer MEDICARE, BC ==
[~2020-10-05] MED LIST changes: -DONNATAL 5ml ORAL Elix (BELLADONNA ALK-PHENOBARB) ONE; -DONNATAL 5ml ORAL Elix (BELLADONNA ALK-PHENOBARB) PO ONE; -METF-370 PO; -ONDANSETRON HCL 4 MG/2 ML VIAL IV ONE; -ONDANSETRON HCL 4 MG/2 ML VIAL ONE; -SODIUM CHLORIDE 0.9% 1,000 ML IV ONE; -TICA1TAB PO
== END | disposition home or self-care (01) ==
LOC: Rad HDHVI 10:25
PROVIDERS: ATTEND Internal Medicine Cardiovascular Disease
DX: I51.7 Cardiomegaly (principal); R06.02 Shortness of breath
CPT/HCPCS: 93306

== ENCOUNTER → 2020-10-09 | Outpatient (CLI) | payer MEDICARE, BC | END | disposition home or self-care (01) | LOC: Rad HDHVI 11:09 | PROVIDERS: ATTEND Internal Medicine Cardiovascular Disease | DX: I25.10 Atherosclerotic heart disease of native coronary artery without angina pectoris (principal); R42 Dizziness and giddiness | CPT/HCPCS: 93880 ==

== ENCOUNTER → 2020-10-18 | Outpatient (CLI) | payer MEDICARE, BC ==
[~2020-10-18] VITALS: Ht 152.4 cm; Wt 57.2 kg
[~2020-10-18] MED LIST changes: +ADENOSINE 48 MG in GIVE UN-DILUTED 0 ML IV ONE; +ADENOSINE 90 MG/30 ML INJ IV ONE
[2020-10-18 11:49] LABS: Urine Blood Negative /uL (Negative); Urine Specific Gravity 1.008 (1.001-1.035)
[2020-10-18 11:54] LABS: Basophils # (auto) 0 10 ^3/uL (0-0.2); Basophils % (auto) 0.4 % (0.0-2.0); Eosinophils # (auto) 0.1 10 ^3/uL (0-0.8); Eosinophils % (auto) 0.9 % (0.0-7.0); Hemoglobin 10.6 g/dL (12.2-16.2); Lymphocytes # (auto) 2.5 10 ^3/uL (0.4-5.4); Lymphocytes % (auto) 21.3 % (10.0-50.0); Mean Corpuscular Hemoglobin 32.4 pg (28.0-32.0); Mean Corpuscular Hgb Conc. 34.1 g/dL (32.0-36.0); Monocytes # (auto) 0.6 10 ^3/uL (0-1.3); Monocytes % (auto) 5.3 % (0.0-12.0); Neutrophils # (auto) 8.6 10 ^3/uL (1.6-8.6); Neutrophils % (auto) 72.1 % (37.0-80.0); Nucleated Red Blood Cells % 0.1 %; Platelet Count (auto) 361 10^3/uL (140-450); Red Blood Cells 3.27 10^6/uL (4.0-5.20); Red Cell Distribution Width 15.2 % (11.8-14.3); White Blood Cell 11.9 10^3/uL (4.4-10.8)
[2020-10-18 11:58] LABS: Potassium 3.8 mmol/L (3.5-5.1)
[2020-10-18 12:02] LABS: Free T4 (Free Thyroxine) 1.2 ng/dL (0.89-1.76)
[2020-10-18 12:09] LABS: Albumin 3.3 g/dL (3.4-5.0); BUN/Creatinine Ratio 14.8; Bilirubin, Total 0.3 mg/dL (0.2-1.0); Calcium 8.8 mg/dL (8.5-10.1); Total Protein 8.1 g/dL (6.4-8.2)
== END | disposition home or self-care (01) ==
LOC: Rad HDHVI 09:23
PROVIDERS: ATTEND Internal Medicine Cardiovascular Disease
DX: D51.3 Other dietary vitamin B12 deficiency anemia (principal); D64.9 Anemia, unspecified; E55.9 Vitamin D deficiency, unspecified; I10 Essential (primary) hypertension; E11.9 Type 2 diabetes mellitus without complications; R00.2 Palpitations; R30.0 Dysuria; R53.1 Weakness
CPT/HCPCS: 36415; 78452; 80053; 80061; 81003; 82306; 82607; 83036; 84439; 84443; 85025; 87086; 87088; 87186; 93005; 96374; 96375; A9500; J0153

== ENCOUNTER → 2020-12-21 | Outpatient (CLI) | payer MEDICARE, BC ==
[~2020-12-21] MED LIST changes: -ADENOSINE 48 MG in GIVE UN-DILUTED 0 ML IV ONE; -ADENOSINE 90 MG/30 ML INJ IV ONE
[2020-12-21 09:50] VITALS: BP 156/100
[2020-12-21 11:19] VITALS: BP 133/58
== END | disposition home or self-care (01) ==
LOC: CHF HDHVI 10:18
PROVIDERS: ATTEND Internal Medicine Cardiovascular Disease
DX: M25.512 Pain in left shoulder (principal); M25.511 Pain in right shoulder; R53.1 Weakness
CPT/HCPCS: G0463